=== PATIENT | female | born 1960 | race Caucasian/White ===

== ENCOUNTER 2022-06-12 21:07 | Emergency (ER) | payer OTHER, SELFPAY ==
[2022-06-12 21:08] VITALS: BP 126/64; PULSE 70; RESP 18; TEMP 36.7; O2SAT 98; BMI 18.6
[2022-06-12] MEDS: 0.9% Normal Saline 1,000 ML 1000 ML IV (21:34)
[2022-06-12] MEDS: Ondansetron 4 MG/2 ML Vial IV (21:34)
--- NOTE | 2022-06-12 21:35 | ED.VIS.GI ---
HPI HPI - GI History of Present Illness Chief Complaint: Diarrhea Detail of Chief Complaint: Diarrhea that started 1 week ago. Informant: patient and family Abdominal Pain/Flank Pain Onset: Weeks Context: Sudden Onset Timing: Intermittent Quality: Cramping Location: Diffuse Current Severity: Complains of fullness at this time Maximum Severity: Mild (With diarrhea) Worsened by: Nothing Relieved by: Nothing Nausea/Vomiting/Emesis GI Symptom: Positive for Nausea; Negative for Vomiting Diarrhea/Melena/Hematochezia GI Symptom: Positive for Diarrhea (There is between a low of 3 times a day to 10 today. There have been points where it is [place] to semiformed.) and - (No mucus has noted.); Negative for Melena or Hematochezia Onset: Weeks Stool Quality: Positive for Loose and Watery; Negative for Mucous, Black, Maroon or BRB per rectum Associated Symptoms Associated Symptoms: Negative for Dysuria, Frequency, Hematuria or Urgency LMP: Postmenopausal Narrative Narrative: Patient is a 61-year-old woman who presents because of diarrhea. No ill contacts. No ingestion of anything that tasted unusual to her. She has not been on antibiotics in the past 2 months. There is no history of pseudomembranous colitis. Patient does complain of fullness and bloating. She complains of subjective fever. She had no shaking chills. She does complain of thirst and dry mouth. She denies orthostatic symptoms. She denies headache, visual, ocular auditory symptoms. She she denies respiratory symptoms. She denies urologic symptoms. She denies paresthesia, anesthesia medics. She does complain of mild weakness. Prior similar symptoms: Yes Recent Illness/Hospitalization: No PFSH [facility] Medical History Osteoporosis Recurrent UTI SVT (supraventricular tachycardia) Home Medications mupirocin 2 % topical ointment 1 applic topical TID PRN strep infection #22 grams 03/23/20 [Rx Last Taken Unknown] Bacillus coagulans 800 million cell tablet (Digestive Advantage Probiotics-Prebiotic) cell PO 03/24/20 [History Last Taken Unknown] cholecalciferol (vitamin D3) 125 mcg (5,000 unit) capsule 125 mcg PO DAILY 03/24/20 [History Last Taken Unknown] omega-3 fatty acids 1,000 mg capsule (Fish Oil Concentrate) 1,000 mg PO DAILY 03/24/20 [History Last Taken Unknown] cefuroxime axetil 500 mg tablet 500 mg PO BID #20 tabs 03/19/22 [Rx Last Taken Unknown] Allergy/AdvReac Type Severity Reaction Status Date / Time No Known Allergies Allergy Verified 06/12/22 21:10 Family History Other FH: prostate cancer Family history of irritable bowel syndrome Heart disease Hx of skin cancer, basal cell MVP (mitral valve prolapse) Social History (Updated 06/12/22 @ 21:[address] Mathew Collins MD) household members: none Smoking Status: Never smoker substance use type: does not use ROS ROS ED Constitutional Constitutional ED: Reports fever(s) and subjective; Denies chills, sweats or weight loss ENT ENT ED: Denies ear pain, rhinorrhea or sore throat Cardiovascular Cardiovascular: Denies chest pain, orthopnea or palpitations Respiratory/Chest Respiratory/Chest: Denies cough, dyspnea, dyspnea on exertion or orthopnea Gastrointestinal Gastrointestinal: Reports abdominal pain, diarrhea and nausea; Denies constipation, melena or vomiting Genitourinary Genitourinary ED: Denies dysuria, hematuria or urinary frequency Musculoskeletal Musculoskeletal: Denies arthralgias, back pain, myalgias or neck pain Integumentary Denies rash Neurologic Neurologic: Reports weakness; Denies paresthesias Endocrine Endocrinology: Denies polydipsia or polyuria Hematologic/Lymphatic Hematologic/Lymphatic: Denies easy bleeding or easy bruising EXAM Physical Exam Const Vital Signs: 06/12/22 21:08 Temperature 98.0 F Temperature Source Temporal Pulse Rate 70 Respiratory Rate 18 Blood Pressure 126/64 H Blood Pressure Mean 84 Pulse Ox 98 Oxygen Delivery Method Room Air Positive well nourished and well developed Constitutional Narrative: Patient does not appear well. General Appearance ED: well developed; Negative for NAD or pallor HEENT Reports TM's clear and dry mucous membranes normocephalic and atraumatic Tympanic Membrane ED: Yes TM's clear Mouth ED: Yes dry mucous membranes Mouth: dry mucous membranes Eyes PERRL and EOMs intact bilaterally General Eye ED: Negative for pale conjunctiva or scleral icterus Neck no lymphadenopathy, supple and no JVD Resp normal respiratory effort and clear to auscultation bilaterally Cardio regular rate, regular rhythm, S1 normal heart sound, S2 normal heart sound and no murmurs GI no masses; Negative for non-tender or non-distended GI Narrative: Slight tympany on percussion. Auscultation: hypoactive bowel sounds Palpation: soft and tender other (Minimal diffuse tenderness.); Negative for guarding, rigid, hepatomegaly, splenomegaly, mass or pulsatile mass Back/Spine no CVA tenderness Extremity full ROM General Extremety ED: Negative for edema or tenderness General Extremity: Negative for edema Neuro CN's II-XII intact bilaterally and moves all extremities Sensorium / Orientation: alert Psych mental status grossly normal and thought process normal Skin no wounds General Skin Exam: Negative for jaundice or pallor Lesions: no lesions Rashes: no rashes MDM MDM MDM Narrative Medical decision making narrative: Clinically patient appears dehydrated. BMP was obtained assess renal function and evaluate for hypokalemia. Patient was treated with Zofran for her nausea and Imodium for her diarrhea. Based on the fact that she is had soft to mushy stool would not be consistent with Pseudomonas enterocolitis. Suspect this is due to viral illness. Patient did discontinue Lexapro abruptly. There is reported side effect of diarrhea with withdrawal of Lexapro abruptly. However would not expect this to last 7 days in duration. History & Record Review Discussion w/independent historian: Patient and Family Additional record(s) reviewed:: Prior outpatient record (Concern for Laine Coates for anal cellulitis and dizziness were noted in 2020 2022 respectively.) Lab Data Attestation: I reviewed the patient's lab results. Lab results narrative: Head is elevated nonspecific. Differential is normal. Patient does have hyponatremia which may be due to Lexapro. The hypokalemia is due to the diarrhea. Renal function is normal. Labs: Laboratory Results - last 24 hr 06/12/22 06/12/22 21:30 21:30 WBC 13.2 H RBC 4.58 Hgb 14.4 Hct 43.4 MCV 94.8 MCH 31.4 MCHC 33.2 RDW Std Deviation 43.6 RDW Coeff of Karsten 12.6 Plt Count 230 MPV 10.0 Immature Gran % (Auto) 0.300 Neut % (Auto) 58.7 Lymph % (Auto) 16.9 L Swift % (Auto) 5.0 Eos % (Auto) 18.6 H Baso % (Auto) 0.5 Absolute Neuts (auto) 7.7 Absolute Lymphs (auto) 2.23 Nucleated RBC % 0 Differential Comment SCANNED Diff Path Review May foll Sodium 130 L Potassium 3.1 L Chloride 99 Carbon Dioxide 22.0 Anion Gap 9 BUN 15 Creatinine 0.86 Estim Creat Clear Calc 59.64 Est GFR (MDRD) Af Amer 86 Est GFR (MDRD) Non-Af 71 BUN/Creatinine Ratio 17.4 Glucose 105 Calcium 9.3 Treatment and Re-Evaluation :: Was reevaluated at 2215. She appears better and feels better. She was discharged to home. Discharge Plan Triage Chief Complaint: Diarrhea ED Provider: Mathew Collins Dx/Rx/DC Orders Clinical Impression: Diarrhea, Acute dehydration, Acute hypokalemia, Acute hyponatremia Instructions: ED Diarrhea, Viral (Adult) Prescriptions: No Action mupirocin 2 % ointment 1 applic TOPICAL TID PRN (Reason: strep infection) Qty: 22 3RF omega-3 fatty acids [Fish Oil Concentrate] 1,000 mg capsule 1,000 mg PO DAILY Digestive Advantage Probio-Pre 800 million cell tablet PO cholecalciferol (vitamin D3) 125 mcg (5,000 unit) capsule 125 mcg PO DAILY cefuroxime axetil 500 mg tablet 500 mg PO BID Qty: 20 0RF Primary Care Provider: Care Physician,No Primary Referrals: Care Physician,No Primary [Primary Care Provider] - Doctor,Your [Non-Staff] - 3-5 Days if not improving Activity Restrictions/Additional Instructions: 1. You may take 1 Imodium capsule with each loose stool. Do not take more than 8 in 24 hours 2. If there is no improvement after 3 days follow-up with your doctor or return to the emergency department 3. Increase your fluid intake
[2022-06-12 21:49] LABS: Absolute Lymphocyte Count 2.23 X10^3/uL (0.83-4.51); Absolute Neutrophil Count 7.7 X10^3/uL (2.0-7.7); Basophil# 0.07 X10^3/uL; Basophil% 0.5 % (0-1); Eosinophils% 18.6 % (0-5); Hematocrit 43.4 % (37-47); Hemoglobin 14.4 g/dL (12.0-15.0); Lymphocyte # 2.23 X10^3/ul (0.83-4.51); Lymphocyte % 16.9 % (19-41); Mean Corp Hgb Conc 33.2 g/dL (32-36); Mean Corpuscular Hgb 31.4 pg (27.0-32.0); Mean Corpuscular Volume 94.8 fL (81-99); Monocyte# 0.66 X10^3/uL; NRBC Flagged by Analyzer 0 % (0-5); Neutrophil # 7.71 X10^3/uL (2.7-7.7); Neutrophil % 58.7 % (47-70); POSITIVE DIFFERENTIAL YES; Platelet Count 230 K/mm3 (150-450); RBC Distribution Width CV 12.6 % (11.6-14.6); RBC Distribution Width SD 43.6 fl (35.1-43.9); Red Blood Count 4.58 M/mm3 (4.2-5.4); White Blood Count 13.2 K/mm3 (4.4-11.0)
[2022-06-12 21:55] LABS: Anion Gap 9 (5-15); BUN 15 mg/dL (7-18); BUN/Creat Ratio 17.4 RATIO (10-20); Calcium,Total 9.3 mg/dL (8.5-10.1); Chloride 99 mmol/L (98-107); Creatinine, Serum 0.86 mg/dL (0.55-1.02); EST Glomerular Filtration Rate 71 mL/min (>60); Est Glom Filt Rate - Afr Amer 86 mL/min (>60); Estimated Creatinine Clearance 59.64 ml/min; Glucose 105 mg/dL (74-106); Potassium 3.1 mmol/L (3.5-5.1); Sodium Level 130 mmol/L (136-145)
[2022-06-12 22:06] LABS: Differential Indicated SCAN CRITERIA MET; Eosinophil# 2.45 X10^3/uL
[2022-06-12 22:09] LABS: Differential Comment SCANNED
[2022-06-13 13:25] LABS: Pathologist Review Reviewed
== END 2022-06-12 22:30 | disposition home or self-care (01) ==
LOC: ED 21:32
PROVIDERS: Emergency Provider Emergency Medicine; Visit Provider Emergency Medicine
DX: R19.7 Diarrhea, unspecified (principal); E87.6 Hypokalemia; E86.0 Dehydration; E87.1 Hypo-osmolality and hyponatremia
CPT/HCPCS: 80048; 85025; 99284; J7030; A4216; J2405

== ENCOUNTER → 2023-04-24 | Outpatient (CLI) | payer OTHER, SELFPAY ==
--- NOTE | 2023-04-24 08:25 | BD_ITS ---
STUDY: DUAL ENERGY X-RAY ABSORPTIOMETRY / DXA REASON FOR EXAM: Female, 62 years old. [id number] TECHNIQUE: Bone Mineral Density (BMD) measurements of lumbar spine and bilateral hips were obtained. COMPARISON: None. FINDINGS: Lumbar Spine (L1-L4): g/cm2 (0.800) / T-score (-2.3) / Z-score (-0.7) Findings are suggestive of osteopenia with a high fracture risk. Left Femur Total: g/cm2 (0.666) / T-score (-2.3) / Z-score (-1.1) Left Femoral Neck: g/cm2 (0.554) / T-score (-2.7) / Z-score (-1.2) Right Femur Total: g/cm2 (0.618) / T-score (-2.7) / Z-score (-1.5) Right Femoral Neck: g/cm2 (0.633) / T-score (-1.9) / Z-score (-0.5) BD/Dexa Bone Density Study IMPRESSION: The patient is considered osteoporotic as outlined below according to World [employer] Organization (WHO) criteria with a high fracture risk. Reference Information: The T-score is the number of standard deviations above or below the standard which is normal for young adults at their peak bone mineral density. The World Health Organization (WHO) interprets the T-scores as follows: Above -1 Normal bone density Between -1 and -2.5 Osteopenia Equal to / or below -2.5 Osteoporosis As a practical clinical guideline, osteopenia may be graded as follows: Mild -1 through -1.5 Moderate -1.6 through -2.0 Severe -2.1 through -2.4 The Z-score is the number of standard deviations above or below age-matched controls. A Z-score of less than -1.5 would be considered abnormal. References: 1. NIH Osteoporosis and Related Bone Diseases www osteo.org 2. International Society for Clinical Densitometry www iscd.org 3. National Osteoporosis Foundation www nof.org Electronically Signed: Bridger Isabel MD at 15:30 EST ,
--- OUTSIDE RECORDS SUMMARY | 2023-04-24 08:44 | XMS RPT_ITS | CCD ---
Author Name Unknown Address [address] [place] [address] Organization [facility] Care Team Providers Care Manager Molecular Name Role Phone Chan Gillette Primary Care Provider Bridenthal [employer]NER OPERATOR - INFORMATION LEAD Rashi Primary Care Prov ider JASON MARTINEZ Attending Unavailable BRIDENTHAL, RASHI Primary Care Unavailable JASON MARTINEZ Attending Unavailable BRIDENTHAL, RASHI Primary Care Unavailable BRIDENTHAL, RASHI Attending Unavailable BRIDENTHAL, RASHI Referring Unavailable BRIDENTHAL, RASHI Primary Care Unavailable BRIDENTHAL, RASHI Attending Unavailable CHAN GILLETTE Primary Care Unavailable Medications Current Medications Medication Drug Class(es) Dates Sig (Normalized) Sig (Original) docosahexaenoic acid 120 mg / eicosapentaenoic acid 180 mg oral capsule (9 sources) take 1 capsule by mouth once daily omega-3 (Fish Oil) 1000 MG capsule Take 1,000 mg by mouth daily. 0 Active escitalopram 20 mg oral tablet (6 sources) Serotonin Reuptake Inhibitor Start: 05-15-2022 End: 06-14-2022 take 1 tablet by mouth once daily escitalopram (Lexapro) 20 MG tablet Indications: Anxiety , Seasonal affective disorder (HCC) Take 1 tablet (20 mg) by mouth daily. 30 tablet 0 05/15/2022 Active Completed/Discontinued Medications Medication Drug Class(es) Dates Sig (Normalized) Sig (Original) Dextran (1 source) take 1 drop(s) into the eye(s) four times daily DEXTRAN 70/HYPROMELLOSE (TEARS NATURALE OPHTHALMIC) Use 1 Drop in eyes four times daily. BOTH EYES 0 Active Problems Active Problems Problem Classification Problem Date Documented Da te Episodic/Chronic Anxiety disorders (12 sources) Anxiety; Translations: [Anxiety disorder, unspecified] Onset: 3 Chronic Cardiac dysrhythmias (9 sources) Supraventricular tachycardia; Translations: [Supraventricular tachycardia] Onset: 3 04-10-2022 Chronic Menopausal disorders (12 sources) Vaginal dryness; Translations: [Menopausal and female climacteric states] Onset: 6 09-25-2015 Chronic Mood disorders (12 sources) Seasonal affective disorder; Translations: [Other recurrent depressive disorders] Onset: 3 Chronic Other diseases of bladder and urethra (10 sources) Disorder of bladder; Translations: [Other specified disorders of bladder] Onset: 9 06-28-2008 Chronic Other eye disorders (10 sources) Vitreous opacities; Translations: [Other vitreous opacities, unspecified eye] Onset: 4 01-06-2014 Chronic Other gastrointestinal disorders (1 source) Incontinence of feces; Translations: [Full incontinence of feces] 03-28-2023 Episodic Other screening for suspected conditions (not mental disorders or infectious disease) (7 sources) Patient encounter status; Translations: [Encounter for screening mammogram for malignant neoplasm of breast] Onset: 4 Episodic Residual codes; unclassified (1 source) Postmenopausal state; Translations: [Asymptomatic menopausal state] 03-25-2023 Episodic Residual codes; unclassified (2 sources) Asymptomatic menopausal state; Translations: [Asymptomatic menopausal state] Onset: 4 Episodic Past or Other Problems Problem Classification Problem Date Documented Da te Episodic/Chronic Genitourinary symptoms and ill-defined conditions (10 sources) Increased frequency of urination; Translations: [Frequency of micturition] Onset: 09-25-2015 09-25-2015 Episodic Malaise and fatigue (9 sources) Fatigue; Translations: [Other fatigue] Onset: 04-10-2022 04-10-2022 Episodic Nonmalignant breast conditions (10 sources) Breast lump; Translations: [Unspecified lump in unspecified breast] Onset: 09-25-2015 09-25-2015 Episodic Other eye disorders (10 sources) Tear film insufficiency; Translations: [Dry eye syndrome of unspecified lacrimal gland] Onset: 01-06-2014 01-06-2014 Episodic Results Test Name Value Interpretation Reference Range Facil ity Vital Signs Date Time Vital Sign Value Performing Clinician Faci lity 03-25-2023 09:29-0500 Body height 172.7 cm Jason Martinez MD Work Phone: [facility] [employer] 03-25-2023 09:29-0500 Body mass index (BMI) [Ratio] 19.16 kg/m2 Jason Martinez MD Work Phone: [facility] [employer] 03-25-2023 09:29-0500 Body weight 57.15 kg Jason Martinez MD Work Phone: [facility] [employer] 03-25-2023 09:29-0500 Diastolic blood pressure 57 mm[Hg] Jason Martinez MD Work Phone: [facility] [employer] 03-25-2023 09:29-0500 Heart rate 67 /min Jason Martinez MD Work Phone: [facility] [employer] 03-25-2023 09:29-0500 Systolic blood pressure 110 mm[Hg] Jason Martinez MD Work Phone: [facility] [employer] 02-12-2023 08:02-0500 Body height 172.7 cm Rashi Bridenthal N[employer] OWNER OPERATOR - INFORMATION LEAD Work Phone: [facility] [employer] 02-12-2023 08:02-0500 Body mass index (BMI) [Ratio] 18.25 kg/m2 Rashi Bridenthal [employer] OWNER OPERATOR - INFORMATION LEAD Work Phone: [facility] [employer] 02-12-2023 08:02-0500 Body weight 54.43 kg Rashi Bridenthal [employer] OWNER OPERATOR - INFORMATION LEAD Work Phone: [facility] [employer] 05-15-2022 08:43-0400 Diastolic blood pressure 64 mm[Hg] Rashi Bridenthal N[employer] VAN OWNER OPERATOR - INFORMATION LEAD Work Phone: [facility] [employer] 05-15-2022 08:43-0400 Heart rate 69 /min Rashi Bridenthal N[employer] OWNER OPERATOR - INFORMATION LEAD Work Phone: [facility] [employer] 05-15-2022 08:43-0400 Respiratory rate 14 /min Rashi Bridenthal [employer]AN OWNER OPERATOR - INFORMATION LEAD Work Phone: [facility] 05-15-2022 08:43-0400 SaO2% (BldA) [Mass fraction] 99 % Rashi Tracyenthal N[employer] OWNER OPERATOR - INFORMATION LEAD Work Phone: [facility] 05-15-2022 08:43-0400 Systolic blood pressure 102 mm[Hg] Rashi Tracyenth al [employer] OWNER OPERATOR - INFORMATION LEAD Work Phone: [facility] Encounters Encounter Date Encounter Type Care Provider Facility Start: 04-22-2023 Telephone encounter Jason beatty MD Work Phone: [facility] Procedures Date Procedure Procedure Detail Performing Clinician Start: 02-12-2023 End: 02-12-2023 Screening digital breast tomosynthesis bi Rashi Bridenthal [employer] OWNER OPERATOR - INFORMATION LEAD Work Phone: Start: 01-22-2022 Mammography Rashi Bridenthal [employer] OWNER OPERATOR - INFORMATION LEAD Work Phone: Start: 01-09-2022 Microscopic observation [Identifier] in Cervix by Cyto stain Rashi Tracyenthal N[employer] OWNER OPERATOR - INFORMATION LEAD Work Phone: Start: 12-25-2020 Microscopic observation [Identifier] in Cervix by Cyto stain Tyrell Bose MD Work Phone: Start: 09-28-2015 Mammography Marva Huynh RN Start: 01-06-2014 History of laser assisted in situ keratomileusis S/P LASIK (laser assisted in situ keratomileusis) of both eyes - Both Eyes Marva Huynh RN Plan of Treatment Date Care Activity Detail Author Start: 01-09-2027 Screening for malignant neoplasm of cervix [facility] Start: 12-29-2025 Lipid panel Lipid screen [facility] Start: 01-09-2025 Screening for malignant neoplasm of cervix Pap Smear [facility] Start: 02-13-2024 Screening for malignant neoplasm of breast Mammogram [facility] Start: 12-26-2023 Screening for malignant neoplasm of cervix [facility] Start: 03-25-2023 End: 05-23-2024 DBT Breast - bilateral screening Bilateral screening mammogram with tomosynthesis Imaging Routine Encounter for screening mammogram for malignant neoplasm of breast Expected: 03/25/2023, Expires: 05/23/2024 [facility] [employer] [facility] Work Phone: Immunizations Immunization Date Immunization Notes Care Provider Paty olson 03-08-2021 zoster vaccine recombinant Rashi Bridenthal NATIONAL VAN OWNER OPERATOR - INFORMATION LEAD Work Phone: [facility] [employer] 01-05-2021 zoster vaccine recombinant Rashi Bridenthal [employer] OWNER OPERATOR - INFORMATION LEAD Work Phone: [facility] 07-03-2007 tetanus toxoid, adsorbed Petty ecca Bridenthal NATIONAL VAN OWNER OPERATOR - INFORMATION LEAD Work Phone: [facility] [employer] Payers Date Payer Category Payer Unknown [employer] [facility] [id number] 2021-Present [address] [place] [address] Commercial [id number] 2014 Unknown [id number] Social History Date Type Detail Facility Start: 09-25-2015 Tobacco smoking stat [facility] Never smoked tobacco [employer] Work Phone: Start: 09-25-2015 Tobacco use and exposure Smokeless tobacco non-user [employer] Phone: Start: 12-25-2020 End: 03-26-2023 Alcohol intake Ex-drinker (finding) [employer] Phone: Start: 1960 Sex Assigned At Not on file [facility] [employer] Phone: Start: 05-04-2022 End: 05-14-2022 Exposure to SARS-CoV-2 (event) Not sure [employer] Start: 05-22-2015 Alcohol intake Current non-dr supervisor [employer] of alcohol (finding) [facility] Start: 1960 Sex Assigned At Female [facility] [employer] Start: 02-04-2023 End: 03-25-2023 History of Social function [facility] [employer] Start: 02-04-2023 End: 03-25-[address] [facility] Start: 01-07-2022 Gender identity Identifies as female gender (finding) [facility] Clinical Notes 05-15-2022 to 04-22-2023 Telephone Encounter - Barbara Rucker MA - 04/22/2023 11:35 AM ESTTelephone Encounter - Barbara Rucker MA - 04/22/2023 11:35 AM ESTTelephone Encounter - Wendi Reynoso - 04/22/2023 10:49 AM EST Note Date & Type Note Facility 04-22-2023 Telephone encounter Note Refaxed referral [facility] 04-22-2023 Miscellaneous Notes Refaxed referral Name of caller: Rosa Contact phone number: [phone] Relationship to Patient: patient Provider: Dr. Martinez Practice: [facility] Chief Complaint/Reason for Call: Patient called in regarding her Gastroenterology referral. States per Dr. Hernandez's office they haven't received the referral yet. Patient requesting the referral to be faxed over again. . Please Advise Best time of day caller can be reached: any Patient advised that office/PCP has 24-48 business hours to return their call: No documented in this encounter [facility] 04-22-2023 Telephone encounter Note Name of caller: Rosa Contact phone number: [phone] Relationship to Patient: patient Provider: Dr. Martinez Practice: [facility] Chief Complaint/Reason for Call: Patient called in regarding her Gastroenterology referral. States per Dr. Hernandez's office they haven't received the referral yet. Patient requesting the referral to be faxed over again. . Please Advise Best time of day caller can be reached: any Patient advised that office/PCP has 24-48 business hours to return their call: No [facility] 03-28-2023 Telephone encounter Note Pt notified [facility] 03-28-2023 Miscellaneous Notes Pt notified Referral placed Patient is requesting a referral from Dr. Martinez to this provider. This would be an External referral. Thank you. Name of caller: Rosa Relationship to patient: patient Contact phone number: [phone] Speciality referral requested for: Gastroenterology Diagnosis or reason for referral: Fecal incontinence Name of specialist: Dr. Hernandez Name of group/practice: [facility] Patient verified insurance covers referral: No Patient insurance: [employer] Has patient seen this specialist in the past: Yes Estimated time/date patient last saw the specialist: Approximately 3 years ago documented in this encounter [facility] 03-28-2023 Telephone encounter Note Referral placed [facility] 03-25-2023 Note Patient is requestin g a referral from Dr. Martinez to this provider. This would be an External referral. Thank you. [facility] 03-25-2023 Telephone encounter Note Patient is requesting a referral from Dr. Martinez to this provider. This would be an External referral. Thank you. [employer] 03-25-2023 Telephone encounter Note Name of caller: Rosa Relationship to patient: patient Contact phone number: [phone] Speciality referral requested for: Gastroenterology Diagnosis or reason for referral: Fecal incontinence Name of specialist: Dr. Hernandez Name of group/practice: [facility] Patient verified insurance covers referral: No Patient insurance: [employer] Has patient seen this specialist in the past: Yes Estimated time/date patient last saw the specialist: Approximately 3 years ago [facility] 03-25-2023 History of Presen t illness Narrative Rosa Velasco 03/25/2023 62 y.o. Chief Complaint Patient presents with Annual Exam Annual exam No LMP recorded (lmp unknown). Patient is postmenopausal. Primary Care Physician: Rashi Rice, [employer] OWNER OPERATOR - INFORMATION LEAD The patient was seen and examined. She is here for her annual exam. Pap neg/neg 2021. Mg 02/22 wnl. Colonoscopy 2019 due 2029. Dexa osteoporosis. Due for reheck. No pelvic pain. No vaginal bleeding or discharge. Using dhea vaginal suppository. Having rectal incont. Planning to see GI. HPI : Rosa Velasco is a 62 y.o. female OB History Para Term AB Living 2 2 2 2 SAB IAB Ectopic Multiple Live Births 2 # Outcome Date GA Lbr Aneesh/2nd Weight Sex Delivery Anes PTL Lv 2 Term 1 Term Past Medical History: Diagnosis Date Supraventricular tachycardia Urinary frequency 09/25/2015 Past Surgical History: Procedure Laterality Date COLONOSCOPY 2019 normal [place] COLONOSCOPY 02/20/2021 EYE SURGERY TUBAL LIGATION Family History Problem Relation Name Age of Onset Skin cancer Mother Skin Mitral valve prolapse Mother Skin cancer Father Sekou-Prostate Skin Prostate cancer Father Sekou-Prostate 55 No Known Problems Sister Prostate cancer Brother Ghulam Prostate 40 No Known Problems Son No Known Problems Son Social History Socioeconomic History Marital status: Spouse name: Sushant Number of children: Not on file Years of education: Not on file Highest education level: Not on file Occupational History Not on file Tobacco Use Smoking status: Never Smokeless tobacco: Never Vaping Use Vaping Use: Never used Substance and Sexual Activity Alcohol use: Not Currently Drug use: Never Sexual activity: Yes Other Topics Concern Not on file Social History Narrative Lives at home with Sushant 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 Has grand kids 1, 4, 7 for couple hours. Social Determinants of Health Financial Resource Strain: Not on file Food Insecurity: Not on file Transportation Needs: Not on file Physical Activity: Not on file Stress: Not on file Social Connections: Not on file Intimate Partner Violence: Not on file Housing Stability: Not on file MEDICATIONS: Current Outpatient Medications Medication Sig Dispense Refill omega-3 (Fish Oil) 1000 MG capsule Take 1,000 mg by mouth daily. escitalopram (Lexapro) 20 MG tablet Take 1 tablet (20 mg) by mouth daily. 30 tablet 0 Prasterone (Intrarosa) 6.5 MG insert Insert 1 Insert into the vagina daily. 30 each 5 No current facility-administered medications for this visit. ALLERGIES: Allergies as of 03/25/2023 (No Known Allergies) GynecologicHistory: Menstrual History: No LMP recorded (lmp unknown). Patient is postmenopausal. Review of Systems Constitutional: Negative for fatigue, fever and unexpected weight change. HENT: Negative for congestion and sore throat. Eyes: Negative for discharge and visual disturbance. Respiratory: Negative for cough and shortness of breath. Cardiovascular: Negative for chest pain and leg swelling. Gastrointestinal: Negative for abdominal pain, constipation, diarrhea, nausea and vomiting. Genitourinary: Negative for dysuria and pelvic pain. Musculoskeletal: Negative for arthralgias and back pain. Skin: Negative for rash. Neurological: Negative for weakness and headaches. Psychiatric/Behavioral: Negative for dysphoric mood. The patient is not nervous/anxious. PHYSICAL Exam: Constitutional: Vitals: 03/25/23 0929 BP: 110/57 Pulse: 67 Weight: 126 lb (57.2 kg) Height: 5' 8 (1.727 m) Physical Exam Constitutional: General: She is not in acute distress. Appearance: Normal appearance. HENT: Head: Normocephalic and atraumatic. Right Ear: External ear normal. Left Ear: External ear normal. Nose: Nose normal. Eyes: Conjunctiva/sclera: Conjunctivae normal. Neck: Thyroid: No thyromegaly. Cardiovascular: Rate and Rhythm: Normal rate. Pulmonary: Effort: Pulmonary effort is normal. No respiratory distress. Chest: Breasts: Right: No mass, nipple discharge, skin change or tenderness. Left: No mass, nipple discharge, skin change or tenderness. Abdominal: General: There is no distension. Palpations: Abdomen is soft. Tenderness: There is no abdominal tenderness. Genitourinary: General: Normal vulva. Pubic Area: No rash. Labia: Right: No rash or lesion. Left: No rash or lesion. Vagina: No vaginal discharge or bleeding. Cervix: No cervical motion tenderness. Uterus: Not enlarged and not tender. Adnexa: Right: No mass or tenderness. Left: No mass or tenderness. Rectum: Normal. Musculoskeletal: General: No swelling. Normal range of motion. Cervical back: Normal range of motion. Right lower leg: No edema. Left lower leg: No edema. Skin: General: Skin is warm and dry. Neurological: Mental Status: She is alert and oriented to person, place, and time. Mental status is at baseline. Psychiatric: Mood and Affect: Mood normal. Behavior: Behavior normal. ASSESSMENT: 62 y.o. Annual Diagnosis Plan 1. Well woman exam with routine gynecological exam 2. Encounter for screening mammogram for malignant neoplasm of breast Bilateral screening mammogram with tomosynthesis 3. Postmenopausal DEXA bone density axial skeleton Chief Complaint Patient presents with Annual Exam Annual exam Past Medical History: Diagnosis Date Supraventricular tachycardia Urinary frequency 09/25/2015 Hereditary Breast, Ovarian, Colon and Uterine Cancer screening Done. Tobacco & Secondary smoke risks reviewed; instructed on cessation and avoidance PLAN: Follow up in about 1 year (around 03/25/2024) for annual. Repeat Annual every 1 year PAP guidelines reviewed with pt Mammograms annually if normal. Bone density and colonoscopy recommendations reviewed with patient. Routine health maintenance per patients PCP. Orders Placed This Encounter Procedures Bilateral screening mammogram with tomosynthesis Standing Status: Future Standing Expiration Date: 05/23/2024 DEXA bone density axial skeleton Standing Status: Future Standing Expiration Date: 03/25/2024 documented in this encounter [facility] 02-07-2023 Telephone encounter Note Called patient and discussed possibly getting hormone levels tested. She is seeing a holistic provider however provider does not prescribe hormone therapy. States her main symptom is vaginal dryness and atrophy, does have some fatigue, no significant hot flashes. Recently started a vaginal DHEA for the vaginal atrophy and dryness. She is established with [facility] and will be following up with them in March. Patient states that her holistic provider advised her that she may also need oral hormone therapy in addition to the DHEA and that is why patient is seeking the hormone testing. Discussed with patient risks and benefits of hormone replacement therapy. Recommendation to wait and see if her symptoms improve with the use of the vaginal DHEA. [facility] 02-07-2023 Miscellaneous Notes Called patient and discussed possibly getting hormone levels tested. She is seeing a holistic provider however provider does not prescribe hormone therapy. States her main symptom is vaginal dryness and atrophy, does have some fatigue, no significant hot flashes. Recently started a vaginal DHEA for the vaginal atrophy and dryness. She is established with [facility] and will be following up with them in March. Patient states that her holistic provider advised her that she may also need oral hormone therapy in addition to the DHEA and that is why patient is seeking the hormone testing. Discussed with patient risks and benefits of hormone replacement therapy. Recommendation to wait and see if her symptoms improve with the use of the vaginal DHEA. Name of caller: Rosa Contact phone number: [phone] Relationship to Patient: patient Provider: MAYRA Rice Practice: [facility] Chief Complaint/Reason for Call: Pt called back in stating that she still has not heard anything in regards to order's. Pt states she would like to receive a call back today 02/07 if possible. Please advise. Best time of day caller can be reached: Any Patient advised that office/PCP has 24-48 business hours to return their call: Yes Name of caller: Rosa Contact phone number: [phone] Relationship to Patient: patient Provider: FALGUNI Villarreal Practice: [facility] Chief Complaint/Reason for Call: Patient stated that they need to get lab orders and have blood drawn for BHRT. Patient stated that this is to test hormones. Patient stated that they saw [facility] and was advised to request orders from PCP. Patient stated that this is for ongoing issue of fatigue and vaginal dryness. Patient stated to please call back when orders are in to schedule appointment to have blood drawn at [phone]. Please advise. Thank you. Best time of day caller can be reached: Any Patient advised that office/PCP has 24-48 business hours to return their call: No documented in this encounter [facility] 02-07-2023 Telephone encounter Note Name of caller: Rosa Contact phone number: [phone] Relationship to Patient: patient Provider: MAYRA Rice Practice: [facility] Chief Complaint/Reason for Call: Pt called back in stating that she still has not heard anything in regards to order's. Pt states she would like to receive a call back today 02/07 if possible. Please advise. Best time of day caller can be reached: Any Patient advised that office/PCP has 24-48 business hours to return their call: Yes [facility] 02-05-2023 Telephone encounter Note Name of caller: Rosa Contact phone number: [phone] Relationship to Patient: patient Provider: FALGUNI Villarreal Practice: [facility] Chief Complaint/Reason for Call: Patient stated that they need to get lab orders and have blood drawn for BHRT. Patient stated that this is to test hormones. Patient stated that they saw [facility] and was advised to request orders from PCP. Patient stated that this is for ongoing issue of fatigue and vaginal dryness. Patient stated to please call back when orders are in to schedule appointment to have blood drawn at [phone]. Please advise. Thank you. Best time of day caller can be reached: Any Patient advised that office/PCP has 24-48 business hours to return their call: No [facility] 01-30-2023 Telephone encounter Note Noted. Agree with disposition. [facility] 01-30-2023 Miscellaneous Notes Noted. Agree with disposition. S: Patient spoke with [facility] nurse regarding: Pt tested + for covid 11.28.23 & symptoms started 3 days ago. When will pt be able to go out in public B: Onset of symptoms/concern: today A: Attempt to call pt x2, left generic message on identified voicemail x1. R: Pt advised to call back if assistance still needed. Reason for Disposition Message left on identified voice mail Protocols used: No Contact or Duplicate Contact [id number] documented in this encounter [facility] 01-29-2023 Telephone encounter Note S: Patient spoke with [facility] nurse regarding: Pt tested + for covid 11.28.23 & symptoms started 3 days ago. When will pt be able to go out in public B: Onset of symptoms/concern: today A: Attempt to call pt x2, left generic message on identified voicemail x1. R: Pt advised to call back if assistance still needed. Reason for Disposition Message left on identified voice mail Protocols used: No Contact or Duplicate Contact [id number] [facility] 05-15-2022 Evaluation + Plan note Associated Problem(s): Anxiety Slight improvement. Increase escitalopram to 20 mg daily. Follow up in 4-[address] [facility] 05-15-2022 Miscellaneous Notes Associated Problem(s): Anxiety Slight improvement. Increase escitalopram to 20 mg daily. Follow up in 4-6 weeks. Associated Problem(s): Seasonal affective disorder (HCC) Slight improvement. Will increase escitalopram to 20 mg daily. Follow up in 4-6 weeks. documented in this encounter [facility] 05-15-2022 Evaluation + Plan note Associated Problem(s): Seasonal affective disorder (HCC) Slight improvement. Will increase escitalopram to 20 mg daily. Follow up in 4-[address] [facility] 05-15-2022 History of Presen t illness Narrative At Home Independent Call Center Agent for Intimate and Non Intimate Exam At Home Independent Call Center Agent was declined At Home Independent Call Center Agent: na Images from the original note were not included. 05/15/2022 Rosa Velasco (: 1960) is a 61 y.o. female , Established patient, here for evaluation of the following chief complaint(s): Follow-up ASSESSMENT/PLAN: 1. Anxiety Assessment & Plan: Slight improvement. Increase escitalopram to 20 mg daily. Follow up in 4-6 weeks. Orders: - escitalopram (Lexapro) 20 MG tablet; Take 1 tablet (20 mg) by mouth daily., Starting Fri05/15/2022, Until Fri06/14/2022, Normal 2. Seasonal affective disorder (HCC) Assessment & Plan: Slight improvement. Will increase escitalopram to 20 mg daily. Follow up in 4-6 weeks. Orders: - escitalopram (Lexapro) 20 MG tablet; Take 1 tablet (20 mg) by mouth daily., Starting Fri05/15/2022, Until Fri06/14/2022, Normal Follow up in about 1 month (around 06/15/2022). SUBJECTIVE/OBJECTIVE: HPI - Rosa Velasco (: 1960) is a 61 y.o. female , Established patient, here for the evaluation of the following chief complaint(s): Follow-up new patient on 04/10/2022, started on lexapro 5- was increased to 10 mg 04/22/22 for seasonal affective disorder. Cbc, cmp, tsh normal. Reports that she feels like the medication has helped slightly. Denies any current AE of medication. Initially had a mild headache when taking it, but is not any longer. No SI/HI. Is still having a hard time getting out of bed in the morning, feels very un-motivated. Worries a lot still about work related things. Went a couple weeks of not lifting weights or walking, started back up last week. Went yesterday for her walk. Was lifting 2 x weekly and walking for 1 hour the other days. Went to a functional medicine doctor ([facility]) in [place] and told that she wasn't processing sugar , was low on vit C and some other vitamins (not D), and was constipated. She was started on daily supplements, has been on them for about 2 weeks, hasn't noticed a difference yet. Prior to Admission medications Medication Sig Start Date End Date Taking? Authorizing Provider escitalopram (Lexapro) 10 MG tablet Take 1 tablet (10 mg) by mouth daily. 04/22/22 07/21/22 Yes MARISOL Villarreal CNP omega-3 (Fish Oil) 1000 MG capsule Take 1,000 mg by mouth daily. Yes Historical Provider, Health Maintenance Due Topic Date Due Hepatitis B Vaccines (1 of 3 - 3-dose series) Never done HIV Screening Never done Colorectal Cancer Screening Never done MMR Vaccines (1 of 1 - Standard series) Never done Hepatitis C Screening Never done DTaP/Tdap/Td Vaccines (1 - Tdap) Never done COVID-19 Vaccine (4 - Booster for Moderna series) 04/11/2021 Influenza Vaccine (1) Never done Review of Systems Constitutional: Negative. Psychiatric/Behavioral: Positive for dysphoric mood. Negative for agitation, self-injury, sleep disturbance and suicidal ideas. The patient is nervous/anxious. Vitals: 05/15/22 0843 BP: 102/64 Pulse: 69 Resp: 14 SpO2: 99% Physical Exam Constitutional: Appearance: Normal appearance. HENT: Head: Normocephalic and atraumatic. Eyes: Conjunctiva/sclera: Conjunctivae normal. Cardiovascular: Rate and Rhythm: Normal rate and regular rhythm. Pulmonary: Effort: Pulmonary effort is normal. Breath sounds: Normal breath sounds. Neurological: Mental Status: She is alert and oriented to person, place, and time. Psychiatric: Attention and Perception: Attention and perception normal. Mood and Affect: Mood and affect normal. Speech: Speech normal. Behavior: Behavior normal. Behavior is cooperative. Thought Content: Thought content normal. Cognition and Memory: Cognition and memory normal. Judgment: Judgment normal. An electronic signature was used to authenticate this note. MARISOL Villarreal CNP 05/15/2022 8:50 AM [facility] [employer] Phone: Evaluation note* Diagnosis Anxiety Anxiety state, unspecified Seasonal affective disorder (HCC) Other specified episodic mood disorder [facility]* Diagnosis Encounter for screening mammogram for malignant neoplasm of breast documented in this encounter [facility]* Diagnosis Encounter for screening mammogram for malignant neoplasm of breast- Primary Encounter for screening mammogram for malignant neoplasm of breast [facility] Diagnosis Well woman exam with routine gynecological exam- Primary Routine gynecological examination Encounter for screening mammogram for malignant neoplasm of breast Postmenopausal Asymptomatic postmenopausal status (age-related) (natural) [facility] Diagnosis Incontinence of feces, unspecified fecal incontinence type- Primary [facility] Consultation (Routine) - Pending Review Specialty Diagnoses / Procedures [facility] Referred To Contact Gastroenterology Diagnoses Incontinence of feces, unspecified fecal incontinence type Procedures [place] OFFICE/OUTPATIENT [facility] 60 MINUTES Jason Martinez MD [address] [place] [address] Srinivasa Hernandez [address] [place] [address] Referral ID Status Reason Start Date Expiration Date Visits Requested Visits Authorized [id number] Pending Review Specialty Services Required 03/28/2023 03/27/2024 1 1 [facility] Reason for Referral Specialty Diagnoses / Procedures Referred By Juma morton Referred To Contact Radiology Diagnoses Encounter for screening mammogram for malignant neoplasm of breast Procedures Rachele Bishop Digital Screen Bilateral Tyrell Bose MD 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 ACP-Advance Directive ACP-Power of Electrical Engineering Director Summary Purpose Family History No Family History Records FoundNo Family History Records Found Additional Source Comments Care Teams (unrecognized sec tion and content) Manager Molecular Relationship Specialty Start Date End Date Chan Gillette, NATIONAL VAN OWNER OPERATOR.INFORMATION LEAD [address] [address] PCP - General Family Practice 02/08/16 Manager Molecular Relationship Specialty Start Date End Date Chan Gillette [address] [place] [address] PCP - General 02/16/15 Manager Molecular Relationship Specialty Start Date End Date Rashi Rice APRN - INFORMATION LEAD [address] [place] [address] [place] [address] PCP - General Nurse Practitioner Family 11/26/22 Manager Molecular Relationship Specialty Start Date End Date Rashi Rice APRN - INFORMATION LEAD [address] [place] [address] [place] [address] PCP - General Nurse Practitioner Family 11/26/22 Manager Molecular Relationship Specialty Start Date End Date Rashi Rice NATIONAL VAN OWNER OPERATOR - INFORMATION LEAD [address] [place] [address] [place] [address] PCP - General Nurse Practitioner Family 11/26/22 Manager Molecular Relationship Specialty Start Date End Date Rashi Rice NATIONAL VAN OWNER OPERATOR - INFORMATION LEAD [address] [place] [address] [place] [address] PCP - General Nurse Practitioner Family 11/26/22 Manager Molecular Relationship Specialty Start Date End Date Rashi Rice NATIONAL VAN OWNER OPERATOR - INFORMATION LEAD [address] [place] [address] [place] [address] PCP - General Nurse Practitioner Family 11/26/22 Manager Molecular Relationship Specialty Start Date End Date Rashi Rice NATIONAL VAN OWNER OPERATOR - INFORMATION LEAD [address] [place] [address] [place] [address] PCP - General Nurse Practitioner Family 11/26/22 Manager Molecular Relationship Specialty Start Date End Date Rashi Rice, NATIONAL VAN OWNER OPERATOR - MAYRA [address] [facility] [place] [address] PCP - General Nurse Practitioner Family 11/26/22 INFORMATION SOURCE (unrecogn ized section and content) DATE CREATED AUTHOR AUTHOR'S ORGANRICK ATION 04/23/2023 [facility] Source Comments (unrecognize d section and content) In the event this informatio n is protected by the Federal Confidentiality of Alcohol and Drug Abuse Patient Records regulations: The Federal rules restrict any use of the information to criminally investigate or prosecute any alcohol or drug abuse patient.[facility] Reason for Visit (unrecogniz ed section and content) Reason Comments Follow-up Reason Onset Date Comments Lab Orders 02/05/2023 Reason Onset Date Comments Epidemic Concern 01/29/2023 Reason Comments Annual Exam Annual exam Reason Onset Date Comments Referral 03/25/2023 Reason Onset Date Comments Referral 04/22/2023 FOR RECORDS PERTAINING TO PATIENTS WHO ARE OR HAVE BEEN ENROLLED IN A CHEMICAL DEPENDENCY/SUBSTANCEABUSE PROGRAM, SOME INFORMATION MAY BE OMITTED. This clinical summary was aggregated from multiple sources. Caution should be exercised in using it in the provision of clinical care. This summary normalizes information from multiple sources, and as a consequence, information in this document may materially change the coding, format and clinical context of patient data. In addition, data may be omitted in some cases. CLINICAL DECISIONS SHOULD BE BASED ON THE PRIMARY CLINICAL RECORDS. [facility]. provides no warranty or guarantee of the accuracy or completeness of information in this document.
== END | disposition home or self-care (01) ==
LOC: OPBD 08:20
PROVIDERS: Referring Provider Obstetrics & Gynecology; Visit Provider Obstetrics & Gynecology
DX: Z78.0 Asymptomatic menopausal state (principal)
CPT/HCPCS: 77080

== ENCOUNTER → 2024-05-11 | Outpatient (CLI) | payer SELFPAY ==
--- NOTE | 2024-05-11 11:01 | BD_ITS ---
PROCEDURE: DEXA BONE DENSITY STUDY REASON FOR EXAM: HX OF OSTEOPOROSIS F, age 63 y/o . TECHNIQUE: DEXA scan of the lumbar spine and both hips. COMPARISON: None. FINDINGS: T-SCORES Lumbar spine: -2.0 (BMD 0.830) Left hip: -1.9 (BMD 0.712) Right hip: -2.4 (BMD 0.647) Right hip FRAX* Results: 10 Year Probability of Fracture: Hip Fracture(1): 1.4% Major Osteoporotic Fracture(2): 12% Left hip FRAX* Results: 10 Year Probability of Fracture: Hip Fracture(1): 1.4% Major Osteoporotic Fracture(2): 12% *FRAX is a trademark of the [employer]'s [employer] Metabolic Bone Disease, World Health Organization (WHO) Collaborating [employer]. 1-The 10-year probability of fracture may be lower than reported if the patient has received treatment. 2-Major Osteoporotic Fracture: Clinical Spine, Forearm, Hip or Shoulder. The T-scores are also available for review on the [facility] PACS or by accessing the [facility] electronic medical record. BD/Dexa Bone Density Study IMPRESSION: Osteopenia of the lumbar spine bilateral hips. Reading Location: [place]
== END | disposition home or self-care (01) ==
PROVIDERS: PCP Nurse Practitioner; Referring Provider Nurse Practitioner; Visit Provider Nurse Practitioner
DX: M81.0 Age-related osteoporosis without current pathological fracture (principal)
CPT/HCPCS: 77080

== ENCOUNTER → 2024-11-29 | Outpatient (CLI) | payer MEDICARE, SELFPAY ==
--- OUTSIDE RECORDS SUMMARY | 2024-09-14 09:43 | XMS RPT_ITS ---
Author Name Auto Generated Organization OHIP Care Team Providers Care Vocational Case Manager Name Role Phone JASON GIPSON Attending Unavailable BLANKA BENÍTEZ Primary Care Unavailable JASON GIPSON Attending Unavailable JASON GIPSON Referring Unavailable RASHI VALENTIN Primary Care Unavailable PROBLEMS DATE TYPE CONDITION / CODE ATTENDING STATUS [facility] 09/14/2024 Admitting Diagnosis Encounter for gynecological examination (general) (routine) without abnormal findings / Z01.419(ICD-10) JASON GIPSON Active [facility] 09/14/2024 Admitting Diagnosis Encounter for screening mammogram for malignant neoplasm of breast / Z12.31(ICD-10) JASON GIPSON Active [facility] PROCEDURES No Procedure Records Found RESULTS HPV HIGH RISK PCR Observed: 09/14/2024 11:50 AM Status: F Source: [facility] Order Comment: THIS IS A CAR VE-OUT LAB: SPECIMEN MUST BE SENT TO [place] FOR PROCESSING HUMAN PAPILLOMA VIRUS 18 DNA (PRESENCE) Reference Not Detected Not Detected HUMAN PAPILLOMA VIRUS 16 DNA (PRESENCE) Reference Not Detected Not Detected HUMAN PAPILLOMA VIRUS OTHERS DNA (PRESENCE) Reference Not Detected Not Detected HUMAN PAPILLOMA VIRUS 16 AND 18 AND OTHERS DNA (INTERP)Reference The other high risk HPV results include HPV types: 31, 33, 35, 39, 45, 51, 52, 56, 58, 59, 66, and 68. Methodology: [employer] Terrance HPV PCR Assay Performed By: #### [id number] # ### Assistant To The Dean: TORITO FRANCOIS ([id number]) [facility] ([facility]) [address] [place] [address] PAP SMEAR Collected: 11:50 AM Status: F Source: [facility] Order Comment: THIS IS A CAR VE-OUT LAB: SPECIMEN MUST BE SENT TO [place] FOR PROCESSING TYPE CODE TESTS RESULT OUT OF RANGE REFERENCE UNITS PATHOLOGY 1499 LAB AP CASE REPORT Result Comment: Gynecologic Cytology Case: [id number] Authorizing Provider: Jason Gipson MD Collected: 09/14/2024 1150 Ordering Location: [facility] Obstetrics Received: 09/15/2024 1839 and Gynecology - [place] First Screen: KAZ June Specimen: ThinPrep, Pap, Cervical/Endocervical PATHOLOGY 18 LAB AP WOOD MACHINIST APPRENTICE SPECIMEN ADEQUACY The specimen is satisfactory for examination. Endocervical/tra nsformation component present. PATHOLOGY 16 LAB AP WOOD MACHINIST APPRENTICE INTERPRETATION Result Comment: NEGATIVE FOR SQUAMOUS INTRAEPITHELIAL LESION OR MALIGNANCY. at 1002 EDT PATHOLOGY 393 LAB AP WOOD MACHINIST APPRENTICE ADDITIONAL INFORMATION Gynecologic cytology smear evaluation is subject to false positive and false negative interpretation as evidenced by published data. Your patient's Pap test results should thus be interpreted in conjunction with their clinical history and physical examination. PATHOLOGY [id number] AP CASE SCREENING LOCATION [facility], [address] [place] [address]; CLIA: [id number]; Joint Commission: [id number]; CAP: [id number] PATHOLOGY EMBDOC OUTGOING CLINICAL RESULTS EMBEDDED DOCUMENT Performed By: #### LAB4 #### Assistant To The Dean: BRYN PARK ([id number]) [facility] ([facility]) [address] PROGRESS NOTE Observed: 09/14/2024 10:00 AM Status: COMPLETED Source: [facility] Continuous Mining Machine Coal Miner was offered to the patient for exam. Patient declined offer of wine master PROGRESS NOTE Observed: 09/14/2024 10:00 AM Status: COMPLETED Source: [facility] Rosa Garcia 09/14[birth year]24 63 y.o. Chief Complaint Patient presents with Gynecologic Exam Annual exam No LMP recorded (lmp unknown). Patient is postmenopausal. Primary Care Physician: Blanka Benítez MD The patient was seen and examined. She is here for her annual exam. Mg wnl 03/27 Pap neg/neg 2021. Colonoscopy due 2029. Dexa osteoporosis through primary. No pelvic pain. No vaginal bleeding or discharge. Understands risks of hrt HPI : Rosa Garcia is a 63 y.o. female OB History Para Term AB Living 2 2 2 2 SAB IAB Ectopic Multiple Live Births 2 # Outcome Date GA Lbr Aneesh/2nd Weight Sex Type Anes PTL Lv 2 Term 1 Term Medical History[1] Surgical History[2] Family History[3] Social History Socioeconomic History Marital status: Spouse name: Lizzeth Number of children: Not on file Years of education: Not on file Highest education level: Not on file Occupational History Not on file Tobacco Use Smoking status: Never Smokeless tobacco: Never Vaping Use Vaping status: Never Used Substance and Sexual Activity Alcohol use: Not Currently Drug use: Never Sexual activity: Yes Other Topics Concern Not on file Social History Narrative Lives at home with Lizzeth 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 Has grand kids 1, 4, 7 for couple hours. Social Drivers of Health Financial Resource Strain: Low Risk (09/13/2024) Overall Financial Resource Strain (CARDIA) Difficulty of Paying Living Expenses: Not hard at all Food Insecurity: No Food Insecurity (09/13/2024) Hunger Vital Sign Worried About Running Out of Food in the Last Year: Never true Ran Out of Food in the Last Year: Never true Transportation Needs: No Transportation Needs (09/13/2024) PRAPARE - Transportation Lack of Transportation (Medical): No Lack of Transportation (Non-Medical): No Physical Activity: Sufficiently Active (09/13/2024) Exercise Vital Sign Days of Exercise per Week: 7 days Minutes of Exercise per Session: 60 min Stress: No Stress Concern Present (09/13/2024) [place] of Occupational Health - Occupational Stress Questionnaire Feeling of Stress : Not at all Social Connections: Socially Integrated (09/13/2024) Social Connection and Isolation Panel [NHANES] Frequency of Communication with Friends and Family: More than three times a week Frequency of Social Gatherings with Friends and Family: More than three times a week Attends Christian Services: More than 4 times per year Active Member of Clubs or Organizations: Yes Attends Club or Organization Meetings: More than 4 times per year Marital Status: Intimate Partner Violence: Not At Risk (09/13/2024) Humiliation, Afraid, Rape, and Kick questionnaire Fear of Current or Ex-Partner: No Emotionally Abused: No Physically Abused: No Sexually Abused: No Housing Stability: Low Risk (09/13/2024) Housing Stability Vital Sign Unable to Pay for Housing in the Last Year: No Number of Times Moved in the Last Year: 0 Homeless in the Last Year: No MEDICATIONS: Current Medications[4] ALLERGIES: Allergies as of 09/14/2024 (No Known Allergies) GynecologicHistory: Menstrual History: No [...] is not nervous/anxious. PHYSICAL Exam: Constitutional: Vitals: 09/14/24 0949 BP: 116/69 Pulse: 58 Weight: 124 lb (56.2 kg) Height: 5' 8 (1.727 m) Physical [...] Affect: Mood normal. Behavior: Behavior normal. ASSESSMENT: 63 y.o. Annual Diagnosis Plan 1. Women's annual routine gynecological examination Pap Smear HPV High Risk PCR 2. Encounter for screening mammogram for malignant neoplasm of breast Bilateral screening mammogram with tomosynthesis Chief Complaint Patient presents with Gynecologic Exam Annual exam Medical History[5] Hereditary Breast, Ovarian, Colon and Uterine Cancer screening Done. Tobacco & Secondary smoke risks reviewed; instructed on cessation and avoidance PLAN: Follow up in about 1 year (around 09/14/2025) for annual. Repeat Annual every 1 year PAP guidelines reviewed with pt Mammograms annually if normal. Bone density and colonoscopy recommendations reviewed with patient. Routine health maintenance per patients PCP. Orders Placed This Encounter Procedures HPV High Risk PCR THIS IS A CARVE-OUT LAB: SPECIMEN MUST BE SENT TO [place] FOR PROCESSING Bilateral screening mammogram with tomosynthesis Standing Status: Future Expected Date: 09/14/2024 Expiration Date: 11/15/2025 [1] Past Medical History: Diagnosis Date Supraventricular tachycardia (HCC) Urinary frequency 09/25/2015[2] Past Surgical History: Procedure Laterality Date COLONOSCOPY 2019 normal Genoveva COLONOSCOPY 02/20/2021 EYE SURGERY TUBAL LIGATION [3] Family History Problem Relation Name Age of Onset Skin cancer Mother Skin Mitral valve prolapse Mother Skin cancer Father Sekou-Prostate Skin Prostate cancer Father Sekou-Prostate 55 No Known Problems Sister Prostate cancer Brother Ghulam Prostate 40 No Known Problems Son No Known Problems Son [4] Current Outpatient Medications Medication Sig Dispense Refill omega-3 (Fish Oil) 1000 MG capsule Take 1,000 mg by mouth daily. Prasterone (Intrarosa) 6.5 MG insert Insert 1 Insert into the vagina daily. 30 each 5 escitalopram (Lexapro) 20 MG tablet Take 1 tablet (20 mg) by mouth daily. 30 tablet 0 estradiol (Climara) 0.025 MG/24HR Place 1 patch on the skin 1 (one) time per week. 12 patch 3 progesterone (Prometrium) 100 MG capsule Take 1 capsule (100 mg) by mouth daily. 90 capsule 3 No current facility-administered medications for this visit. [5] Past Medical History: Diagnosis Date Supraventricular tachycardia (HCC) Urinary frequency 09/25/2015 OFFICE VISIT Observed: 09/14/2024 10:00 AM Status: COMPLETED [facility]: [facility] [id number] Rosa Garcia 1960 F Date Provider Department Center 09/14/2024 [id number] GIPSON [facility] [place] [facility] [place] Family History Problem Relation Age of Onset Skin cancer Mother Comments: Skin Mitral valve prolapse Mother Skin cancer Father Comments: Skin Prostate cancer Father 55 No Known Problems Sister Prostate cancer Brother 40 No Known Problems Son No Known Problems Son Family Status - Relation Status Age at Mother Alive Father Alive Sister Alive Brother Alive Brother Alive Son Alive Son Alive Maternal Grandmother Maternal Grandfather Paternal Grandmother Paternal Grandfather Level of Service:[id number] RI PERIODIC PREVENTIVE MED EST PATIENT 40-64YRS Reason for Visit and Comments: Gynecologic Exam [50] - Annual exam 36 Observed: 08/26/2024 4:44 PM Status: COMP LETED [facility] Rx sent 36 Observed: 08/25/2024 11:39 AM Status: COMPLETED Source: [place] [employer] [facility] SHAWN: 03/25/2023 NOV: *Aramhart mssg sent to schedule in order to continue getting refills Refill pended for approval Estradiol and Progesterone with 0 refills. 36 Observed: 08/25/2024 9:00 AM Status: COMPLETED Source: [facility] Call routed to Dr Gipson and zohra mssg sent 36 Observed: 08/24/2024 3:34 PM Status: COMPLETED [facility] Patient states she missed a phone call regarding changing her medication and also having it sent to [facility]. Please call her back and advise. Thank you. 36 Observed: 08/24/2024 3:27 PM Status: COMPLETED [facility] Name of caller: Rosa Contact phone number: [phone] Relationship to Patient: patient Provider: Dr Gipson Practice: [facility] Chief Complaint/Reason for Call: Patient called to ask if there is a reason why she is only on progesterone 200 MG capsule for 12 days per month -- her PCP asked why she isn't taking it every day -- please advise. Phone number verified. Best time of day caller can be reached: AM Patient advised that office/PCP has 24-48 business hours to return their call: No 36 Observed: 06/18/2024 1:48 PM Status: COMPLETED Source: [place] [employer] [facility] Pt called and message left These side effects are usually temporary; if she wants to discuss further options please let me know 36 Observed: 06/17/2024 3:13 PM Status: COMPLETED Source: [place] [facility] [facility] S: Patient spoke with LORENA leonard regarding weight gain and hair loss. B: Onset of symptoms/concern 2 weeks. A: Pt states she is concerned about hair loss and 5 lb weight gain within the past few weeks. Pt is wondering if it is from Climara 0.025 mg patch or Progesterone 200 mg. Pt has been taking them since October and did not have any issues when she started them. Hair loss is noticeable to her. Weight gain is not a big concern but she is not sure if it may be connected to her hormones. Pt states she does not want to stop her hormones because she is so happy on them but wants to know if there is anything she can try for the hair loss. That is her main concern. Pt asked her Holistic Provider but was told to ask her Decorator Hand Provider. R: Will send to Provider for review. Pt can be reached at [phone]. Pt to call back if any further ques or concerns. Reason for Disposition Caller has NON-URGENT medicine question about med that PCP or specialist prescribed and triager unable to answer question Answer Assessment - Initial Assessment Questions 1. NAME of MEDICINE: What medicine(s) are you calling about? Climara and Progesterone 2. QUESTION: What is your question? (e.g., double dose of medicine, side effect) Possible side effects 3. PRESCRIBER: Who prescribed the medicine? Reason: if prescribed by specialist, call should be referred to that group. Dr Gipson 4. SYMPTOMS: Do you have any symptoms? If Yes, ask: What symptoms are you having? How bad are the symptoms (e.g., mild, moderate, severe) Weight gain and losing hair 5. : Is there any chance that you are ? When was your last menstrual period? No Protocols used: Medication Question [id number] ALLERGIES No Allergies Records Found ENCOUNTERS ADMIT/DISCHARGE ACCOUNT NUMBER ADMITTING ENCOUNTER CLASS LOC ATION SOURCE 09/14/2024/09/14/2024 [id number] Ambulatory [place] [id number] [facility] 03/08/2024/03/08/2024 [id number] Ambulatory [place] [id number] [facility] PAYERS ENCOUNTER GUARANTOR PAYER SUBSCRIBER SOURCE 09/14/2024 Primary Insurance:MEDICAL MUTUALPolicy Number: [id number] Date:[id number] Name:Commercial LIZZETH LYLE: [id number] [place] [address] [facility] 03/08/2024 Primary Insurance:MEDICAL MUTUALPolicy Number: [id number] Date:[id number] Name:Commercial LIZZETH PEARSONB: [id number] [place] [address] [facility]
== END | disposition home or self-care (01) ==
PROVIDERS: PCP Nurse Practitioner; Referring Provider Nurse Practitioner; Visit Provider Nurse Practitioner
DX: N39.0 Urinary tract infection, site not specified (principal); R35.0 Frequency of micturition
CPT/HCPCS: 87086; 87088